=== PATIENT | male | born 1975 | race Hispanic/Latino ===

== ENCOUNTER 2017-09-21 07:26 | Emergency (ER) | payer OTHER ==
[2017-09-21 08:11] LABS: #Eosinphils 0.1 thou/uL (0.0-0.7); #Lymphocytes 1.4 thou/uL (1.20-3.40); #Monocytes 0.6 thou/uL (0.11-0.59); #Neutrophils 7.3 thou/uL (1.40-6.50); %Basophils 0.4 % (0.0-1.0); %Eosinophils 1.5 % (0.0-10.0); %Lymphocytes 14.3 % (21.0-51.0); %Monocytes 6.3 % (0.0-10.0); Hematocrit 45.5 % (42.0-52.0); Mean Platelet Volume 7.2 fL (7.4-10.4); Red Blood Cell (RBC) Count 4.89 mill/uL (4.70-6.10); White Blood Cell (WBC) Count 9.4 thou/uL (4.8-10.8)
[2017-09-21 08:36] LABS: ALT (SGPT) 10 U/L (8-55); AST (SGOT) 15 U/L (5-34); Alkaline Phosphatase 85 U/L (40-150); Anion Gap 11 mmol/L (10-20); BUN (Urea Nitrogen) 10 mg/dL (8.9-20.6); Bilirubin, Total 0.5 mg/dL (0.2-1.2); CK (CPK) 108 U/L (30-200); Calc. Creatinine Clearance 0 mL/min (70-130); Calcium 9.2 mg/dL (7.8-10.44); Carbon Dioxide 30 mmol/L (22-29); Chloride 105 mmol/L (98-107); Estimated GFR-MDRD Greater than 90; Globulin 2.7 g/dL (2.4-3.5); Protein, Total 6.7 g/dL (6.0-8.3)
[2017-09-21 08:41] LABS: Troponin I Less than 0.010 ng/mL (< 0.028)
--- NOTE | 2017-09-21 09:40 | CT ---
EXAM: NONCONTRAST HEAD CT: HISTORY: Left facial weakness. Stroke-like symptoms. COMPARISON: None. TECHNIQUE: A noncontrast head CT is performed from the skull base to the skull vertex. FINDINGS: No parenchymal hemorrhage. No extraaxial hematoma. No midline shift. Basilar cisterns are patent. Brain volume, age appropriate. Cortical deleon-white matter differentiation is preserved. Ventricles and sulci are patent and symmetric. Calvarium is intact. IMPRESSION: No acute intracranial process. POS: BATSHEVA
[2017-09-21] MEDS ORDERED: Sulfameth/Trimethoprim DS 800-160mg TAB ONE (09:44)
[2017-09-21] MEDS ORDERED: Cephalexin 250 MG CAP ONE (09:48)
--- NOTE | 2017-09-21 09:51 | CT ---
EXAM: CT FACIAL BONES WITHOUT CONTRAST: HISTORY: Left nasal and facial swelling. Stroke-like symptoms. Left facial weakness and numbness. COMPARISON: None. TECHNIQUE: Postcontrast maxillofacial CT is performed in the axial plane. Reformatted images are submitted for interpretation. FINDINGS: Bilateral osteomeatal complexes are patent. Left Haler's cell is noted. The osseous margin of the s inuses and orbits are maintained. Maxilla and mandible are intact. There is adequate aeration of the sinuses and mastoid air cells. There is minimal left preseptal and premaxillary sinus soft tissue swelling. There is a peripherally enhancing centrally hypodense lesion inferior and lateral left aspect of the nose suggesting a small 6 mm soft tissue abscess. Additional smaller 4 mm abscess is noted along the lateral margin of the left nose. There is induration of the adjacent fat. Limited evaluation of the oral cavity. Midline fatty raphae of the tongue is preserved. Epiglottis has a normal caliber. No evidence of prevertebral soft tissue swelling. Visualized soft tissue neck structures are otherwise unremarkable. There is no mass or lymphadenopat hy. Symmetric attenuation of the sternocleidomastoid muscles. IMPRESSION: Left facial soft tissue swelling and edema. There appear to be 2 small abscesses along the left aspe ct of the nose. Both abscesses are too small to drain percutaneously. POS: BATSHEVA
[2017-09-21] MEDS ORDERED: ISOVUE-370 76%-LOCM 1 ML ONE (15:22)
== END 2017-09-21 10:51 | disposition home or self-care (01) ==
LOC: ERS 07:26
DX: J34.0 Abscess, furuncle and carbuncle of nose (principal); Z86.73 Personal history of transient ischemic attack (TIA), and cerebral infarction without residual deficits
CPT/HCPCS: 36415; 36416; 70450; 70487; 80053; 82553; 84484; 85025; 93005; 94760